=== PATIENT | male | born 1990 | race Two or more races ===

== ENCOUNTER 2017-12-02 01:58 | Emergency (ER) | payer SELFPAY ==
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
[2017-12-02 02:56] VITALS: RESP 16; O2SAT 98
[2017-12-02 04:41] VITALS: BP 122/70; PULSE 78; TEMP 98.2
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
--- NOTE | 2017-12-06 22:32 | OP ---
PROCEDURE DATE: 12/02/2017 SURGEON: Ricardo Garcia MD PREOPERATIVE DIAGNOSIS: A 2.6-cm left upper lip laceration across the vermilion border. POSTOPERATIVE DIAGNOSIS: A 2.6-cm left upper lip laceration across the vermilion border. PROCEDURE PERFORMED: Complex repair of total of 2.6-cm left upper lip laceration. ANESTHESIA: Regional: Left infraorbital nerve block. INDICATIONS FOR PROCEDURE: As follows: Please refer to my separately dictated ER consultation for history and physical. DESCRIPTION OF PROCEDURE: As follows. Lidocaine 1% was used in the left infraorbital nerve block for regional anesthesia. After allowing sufficient time for the anesthetic to take effect, the wound was thoroughly irrigated with normal saline. The area was prepped and draped in the usual clean and sterile manner. I debrided the irregular mucosal edges with scissor technique. I repaired the orbicularis margarito muscle in an interrupted fashion with a 4-0 Monocryl suture. I lined up and approximated the subcutaneous tissue and deep dermis in an interrupted fashion with 5-0 Monocryl sutures. I closed the vermilion border and the mucosa with 4-0 chromic sutures in an interrupted fashion. In the inside of upper lip, there was another laceration, which again, total length of all the cut was 2.6 cm. I did the same thing with a 4-0 Monocryl for the submucosa and 4-0 chromic interrupted for the inner mucosa. After doing this, the wound edges and vermilion border were nicely aligned. The patient tolerated the procedure well. I eventually discharged home from the emergency room in stable condition. Postop wound care, limitation of physical activities, and the fact, there will be a scar, the prognosis of which is unknown were discussed with the patient, and all questions were answered. Ricardo Garcia MD
== END 2017-12-02 03:45 | disposition home or self-care (01) ==
LOC: H.ER 01:58
DX: S01.511A Laceration without foreign body of lip, initial encounter (principal); Y04.0XXA Assault by unarmed brawl or fight, initial encounter; Y92.89 Other specified places as the place of occurrence of the external cause; F32.9 Major depressive disorder, single episode, unspecified